=== PATIENT | male | born 1945 | race Caucasian/White ===

== ENCOUNTER 2017-09-06 07:57 | Day surgery (SDC) | payer MEDICARE ==
[~2017-09-06 07:57] MED LIST: CHONDR SU A NA/HYALUR INTRAOC KIT (SURGICARE) ONE; EPINEPHRINE INJ/PF 1 MG/1 ML AMPULE ONE; KETOROLAC TROMETHAMINE 0.45% 4 DROP/0.4 ML DROPERETTE OD PRN; LIDOCAINE 1% INJ-PF (10 MG/ML) 30 ML SDV ONE
[2017-09-06] MEDS: TROPICAMIDE 1% OPH SOLN 3 ML OD PRN ×3 (08:16→08:35)
[2017-09-06] MEDS: TETRACAINE HCL 0.5% OPH SOLN 2 ML OD PRN ×3 (08:16→08:43)
[2017-09-06] MEDS: CYCLOPENTOLATE 0.2%/PHENYLEPHRINE 1% OPH SOLN 2 ML OD PRN ×3 (08:16→08:35)
[2017-09-06] MEDS: BESIFLOXACIN HCL 0.6% OPH SUSP 5 ML BOTTLE OD PRN ×4 (08:17→09:04)
[2017-09-06] MEDS ORDERED: FENTANYL CITRATE INJ/PF 100 MCG/2 ML AMPUL ONE (08:30)
[2017-09-06] MEDS ORDERED: MIDAZOLAM 2 MG/2 ML INJ ONE (08:30)
--- NOTE | 2017-09-07 08:17 | [facility] OPERATIVE REPORT E ---
[facility] Operative Report NAME: ELIZABETH MERRILL AGE: 72Y DATE OF SURGERY: 09/06/2017 ROOM: PREOPERATIVE DIAGNOSIS: CATARACT, RIGHT EYE. POSTOPERATIVE DIAGNOSIS: CATARACT, RIGHT EYE. OPERATION: Cataract extraction with intraocular lens implant of the right eye. SURGEON: RALEIGH WYATT M.D. ANESTHESIA: Topical. PROCEDURE: After obtaining appropriate consent, the patient's right eye was prepped and draped in sterile fashion as well as the surgeon in a sterile manner and cataract surgery was started. First a paracentesis blade was used to make a small side-port incision. Viscoelastic was used to inflate the anterior chamber. Next a 2.4 mm incision was made with the paracentesis blade. A continuous capsulorrhexis incision was made using a cystotome and Utrata forceps. Following this hydrodissection was carried out to make the lens fully loose and mobile and it was rotated 90 degrees. Following this, a azbnul-esn-hatqkcj technique was used to phacoemulsify the lens with a CDE of 11.93. The remaining cortex was removed with irrigation/aspiration. Provisc was instilled into the capsular bag to inflate the bag. A SN60WF, 18.5 diopter lens was placed. The remaining viscoelastic material was removed with irrigation/aspiration. Following this, a 10-0 nylon suture was used to close the incision and it was found to be watertight. Vigamox was instilled in the eye and a protective shield was placed over the eye. The patient returned to the postoperative recovery in stable condition. DICTATING PHYSICIAN: RALEIGH WYATT M.D. [id number] PHY#: [id number] ID: [id number] JOB#: [id number] ACCT: [id number] cc:RALEIGH WYATT M.D. >
--- NOTE | 2017-09-07 08:23 | [facility] DISCHARGE SUMMARY E ---
[facility] Discharge Summary NAME: ELIZABETH MERRILL AGE: 72Y ADMITTED: 09/06/2017 DISCHARGED: 09/06/2017 HISTORY: This is a 72-year-old patient who underwent cataract extraction of the right eye. DIAGNOSIS: Cataract of the right eye. HOSPITAL COURSE: The patient underwent surgery because she was having difficulty driving at night secondary to glare of headlights. He should be on a regular diet. No bending at his waist. No heavy lifting. He should use his Besivance, Ilevro, and Durezol at 3 p.m. and 8 p.m. and sleep with a rigid shield, and I will see him for one day postoperative tomorrow. DICTATING PHYSICIAN: RALEIGH WYATT M.D. [id number] PHY#: [id number] ID: [id number] JOB#: [id number] ACCT: [id number] cc:RALEIGH WYATT M.D. >
== END 2017-09-06 09:45 | disposition home or self-care (01) ==
LOC: SC 07:57
PROVIDERS: ATTEND Internal Medicine
PROC: 08RJ3JZ Replacement of Right Lens with Synthetic Substitute, Percutaneous Approach (ICD-10-PCS; principal; 2017-09-06 09:00)
DX: H25.13 Age-related nuclear cataract, bilateral (principal); I12.9 Hypertensive chronic kidney disease with stage 1 through stage 4 chronic kidney disease, or unspecified chronic kidney disease; N18.3 Chronic kidney disease, stage 3 (moderate); N40.0 Benign prostatic hyperplasia without lower urinary tract symptoms; Z87.891 Personal history of nicotine dependence; Z79.899 Other long term (current) drug therapy; Z85.51 Personal history of malignant neoplasm of bladder
CPT/HCPCS: 66984; V2632; J2250; J3490 ×2; A9270; J0171; J3010; 142

== ENCOUNTER 2017-09-20 06:50 | Day surgery (SDC) | payer MEDICARE ==
[~2017-09-20 06:50] MED LIST changes: -CHONDR SU A NA/HYALUR INTRAOC KIT (SURGICARE) ONE; -EPINEPHRINE INJ/PF 1 MG/1 ML AMPULE ONE; -KETOROLAC TROMETHAMINE 0.45% 4 DROP/0.4 ML DROPERETTE OD PRN; +KETOROLAC TROMETHAMINE 0.45% 4 DROP/0.4 ML DROPERETTE OS PRN; -LIDOCAINE 1% INJ-PF (10 MG/ML) 30 ML SDV ONE
[2017-09-20] MEDS ORDERED: MIDAZOLAM 2 MG/2 ML INJ ONE (06:52)
[2017-09-20] MEDS ORDERED: FENTANYL CITRATE INJ/PF 100 MCG/2 ML AMPUL ONE (06:52)
[2017-09-20] MEDS ORDERED: EPINEPHRINE INJ/PF 1 MG/1 ML AMPULE ONE (07:08)
[2017-09-20] MEDS ORDERED: CHONDR SU A NA/HYALUR INTRAOC KIT (SURGICARE) ONE (07:08)
[2017-09-20] MEDS ORDERED: LIDOCAINE 1% INJ-PF (10 MG/ML) 30 ML SDV ONE (07:08)
[2017-09-20] MEDS: CYCLOPENTOLATE 0.2%/PHENYLEPHRINE 1% OPH SOLN 2 ML OS PRN ×3 (07:13→07:33)
[2017-09-20] MEDS: TETRACAINE HCL 0.5% OPH SOLN 2 ML OS PRN ×3 (07:13→07:59)
[2017-09-20] MEDS: BESIFLOXACIN HCL 0.6% OPH SUSP 5 ML BOTTLE OS PRN ×4 (07:13→08:23)
[2017-09-20] MEDS: TROPICAMIDE 1% OPH SOLN 3 ML OS PRN ×3 (07:13→07:33)
--- NOTE | 2017-09-21 08:32 | [facility] OPERATIVE REPORT E ---
[facility] Operative Report NAME: ELIZABETH MERRILL AGE: 72Y DATE OF SURGERY: 09/21/2017 ROOM: PREOPERATIVE DIAGNOSIS: Cataract, left eye. POSTOPERATIVE DIAGNOSIS: Cataract, left eye. OPERATION: Cataract extraction with intraocular lens implant of the left eye. SURGEON: RALEIGH WYATT M.D. ANESTHESIA: Topical. PROCEDURE: After obtaining appropriate consent, the patient's left eye was prepped and draped in sterile fashion as well as the surgeon in a sterile manner and cataract surgery was started. First a paracentesis blade was used to make a small side-port incision. Viscoelastic was used to inflate the anterior chamber. Next a 2.4 mm incision was made with the paracentesis blade. A continuous capsulorrhexis incision was made using a cystotome and Utrata forceps. Following this hydrodissection was carried out to make the lens fully loose and mobile and it was rotated 90 degrees. Following this, a cnuvpo-irz-nzquhih technique was used to phacoemulsify the lens with a CDE of 10.20. The remaining cortex was removed with irrigation/aspiration. Provisc was instilled into the capsular bag to inflate the bag. A SN60WF, 21.0 diopter lens was placed. The remaining viscoelastic material was removed with irrigation/aspiration. Following this, a 10-0 nylon suture was used to close the incision and it was found to be watertight. Vigamox was instilled in the eye and a protective shield was placed over the eye. The patient returned to the postoperative recovery in stable condition. DICTATING PHYSICIAN: RALEIGH WYATT M.D. [id number] PHY#: [id number] ID: [id number] JOB#: [id number] ACCT: [id number] cc:RALEIGH WYATT M.D. >
--- NOTE | 2017-09-21 08:33 | [facility] DISCHARGE SUMMARY E ---
[facility] Discharge Summary NAME: ELIZABETH MERRILL AGE: 72Y ADMITTED: 09/20/2017 DISCHARGED: 09/20/2017 HISTORY OF PRESENT ILLNESS AND HOSPITAL COURSE: This is a 72-year-old male who underwent cataract extraction of the left eye. DIAGNOSIS: Cataract, left eye. HOSPITAL COURSE: He underwent surgery because he was having difficulty with driving because of glare from headlights. DISCHARGE INSTRUCTIONS: 1. He should be on a regular diet. 2. No bending at his waist and no heavy lifting. 3. He should use his Besivance, Ilevro, and Durezol at 3 p.m. and 8 p.m. and sleep with a rigid shield. 4. I will see him for his one-day postoperative tomorrow. DICTATING PHYSICIAN: RALEIGH WYATT M.D. [id number] PHY#: [id number] ID: [id number] JOB#: [id number] ACCT: [id number] cc:RALEIGH WYATT M.D. >
== END 2017-09-20 09:00 | disposition home or self-care (01) ==
LOC: SC 06:50
PROVIDERS: ATTEND Internal Medicine
PROC: 08RK3JZ Replacement of Left Lens with Synthetic Substitute, Percutaneous Approach (ICD-10-PCS; principal; 2017-09-20 08:00)
DX: H25.12 Age-related nuclear cataract, left eye (principal); Z96.1 Presence of intraocular lens; K21.9 Gastro-esophageal reflux disease without esophagitis; I12.9 Hypertensive chronic kidney disease with stage 1 through stage 4 chronic kidney disease, or unspecified chronic kidney disease; N18.3 Chronic kidney disease, stage 3 (moderate); Z79.899 Other long term (current) drug therapy; Z87.891 Personal history of nicotine dependence; Z85.51 Personal history of malignant neoplasm of bladder
CPT/HCPCS: 66984; V2632; J2250; J3490 ×2; A9270; J0171; J3010; 142

== ENCOUNTER 2020-12-07 00:56 | Emergency (ER) | payer MEDICARE, OTHER ==
[2020-12-07 01:45] LABS: ABSOLUTE EOSINOPHILS # (AUTO) 0.1 10^3/uL (0.0-0.6); ABSOLUTE LYMPHOCYTES (AUTO) 1.4 10^3/uL (0.5-4.7); ABSOLUTE MONOCYTES (AUTO) 0.8 10^3/uL (0.1-1.4); ABSOLUTE NEUT (AUTO) 4.3 10^3/uL (1.7-8.2); BASOPHILS % (AUTO) 0.4 % (0-2); EOSINOPHILS % (AUTO) 0.9 % (0-6); HEMATOCRIT 43.9 % (37.9-51.0); HEMOGLOBIN 14.5 g/dL (13.5-17.0); LYMPHOCYTES % (AUTO) 20.6 % (13-45); MEAN CORPUSCULAR HEMOGLOBIN 27.2 pg (27.0-33.4); MEAN CORPUSCULAR HGB CONC 33.1 g/dL (32.0-36.0); MEAN CORPUSCULAR VOLUME 82 fl (80-97); MONOCYTES % (AUTO) 12.3 % (3-13); PLATELET COUNT 164 10^3/uL (150-450); RED BLOOD COUNT 5.34 10^6/uL (4.35-5.55); RED CELL DISTRIBUTION WIDTH 15.1 % (11.5-14.0); SEGMENTED NEUTROPHILS % (AUTO) 65.8 % (42-78); TOTAL CELLS COUNTED % (AUTO) 100 %; WHITE BLOOD COUNT 6.6 10^3/uL (4.0-10.5)
[2020-12-07 01:49] LABS: ALBUMIN 3.8 g/dL (3.5-5.0); ALKALINE PHOSPHATASE 100 U/L (38-126); ANION GAP 8 (5-19); ASPARTATE AMINO TRANSFERASE 18 U/L (17-59); BILIRUBIN,DIRECT 0.3 mg/dL (0.0-0.4); BILIRUBIN,TOTAL 0.9 mg/dL (0.2-1.3); BLOOD UREA NITROGEN 19 mg/dL (7-20); CALCIUM 8.9 mg/dL (8.4-10.2); CARBON DIOXIDE 27 mmol/L (22-30); CHLORIDE 106 mmol/L (98-107); CREATINE KINASE 56 U/L (55-170); GLUCOSE 178 mg/dL (75-110); POTASSIUM 3.7 mmol/L (3.6-5.0); TOTAL PROTEIN 6.7 g/dL (6.3-8.2)
--- NOTE | 2020-12-07 02:04 | RADIOLOGY REPORT (SQ) ---
CHEST X-RAY 1 VIEW on 12/07/2020 at 1:33 AM CLINICAL INDICATION: Cough COMPARISON: 08/31/2014 FINDINGS: There is mild developing patchy left lower lung opacity consistent with atelectasis or early pneumonia, differential diagnosis would include viral infections. There is minimal left apical scarring. The lungs are otherwise clear. Cardiac, hilar and mediastinal contours are within normal limits. Pulmonary vascularity is within normal limits. IMPRESSION: Mild left lower lung atelectasis or early pneumonia, differential diagnosis would include viral infections.
[2020-12-07 02:18] LABS: CREATINE KINASE MB < 0.22 ng/mL (<4.55); TROPONIN I < 0.012 ng/mL
[2020-12-07] MEDS ORDERED: ACETAMINOPHEN 325 MG TABLET PO ONE (03:10)
[2020-12-07] MEDS ORDERED: ENOXAPARIN SODIUM INJ 100 MG/1 ML DISP.SYRIN SUBCUT STA (03:58)
[2020-12-07 04:11] LABS: INTERNATIONAL RATION (INR) 0.99; PARTIAL THROMBOPLASTIN TIME 29.5 SEC (23.5-35.8); PROTHROMBIN TIME 13.3 SEC (11.4-15.4)
--- NOTE | 2020-12-07 07:42 | ER Document Report ---
ED General <KAMILAH BENITO - Last Filed: 12/07/20 15:53> - General TRAVEL OUTSIDE OF THE [place] IN LAST 30 DAYS: No <CARLOS HARRIS - Last Filed: 12/09/20 07:20> - General Chief Complaint: Chest Wall Pain Stated Complaint: CHEST PAIN X5DAYS Primary Care Provider: NELLI HERNADEZ MD [Primary Care Provider] - Follow up as needed Notes: I spoke with this patient at 0 900 after returning from VQ scan where Shelli atm technician and Dr. Bro radiologist read this as a lower lobe pulmonary embolism. Patient is tachypneic at 29 and has severe pain. He reports 3 weeks ago he Covid and was tested negative per EMS in route. He has no prior history of DVT or pulmonary embolism. I spoke to Dr. Sethi hospitalist about this case shortly after this. I spoke about this at 0 915 and he advises Lovenox oral Eliquis pain medication and antibiotics. (KAMILAH BENITO JR) 75-year-old male with history of hypertension and psoriasis on Humira, CKD presents with approximately 5 days of chest pain lateral anterior lower left chest exacerbated by taking deep breaths. Patient has had dry cough for the past 3 weeks, has Covid currently with patient presumptive positive, over the past few days developed chest pain and has had scant red hemoptysis. Patient denies exertional chest pain, cardiac history, lower extremity edema, prior DVT/PE/hypercoagulability history, recent travel/trauma/immobilization/surgery, abdominal pain, back pain, fever, shortness of breath (CARLOS HARRIS) - Related Data Allergies/Adverse Reactions: No Known Allergies Allergy (Verified 09/06/17 08:10) Past Medical History - Social History Smoking Status: Never Smoker Cigarette use (# per day): No Chew tobacco use (# tins/day): No Smoking Education Provided: No Frequency of alcohol use: None Lives with: Family Family History: Reviewed & Not Pertinent Patient has suicidal ideation: No Patient has homicidal ideation: No <YINGKAMILAH Ponce - Last Filed: 12/07/20 15:53> - General Information source: Patient - Social History Smoking Status: Never Smoker Chew tobacco use (# tins/day): No Frequency of alcohol use: None Drug Abuse: None Family History: Reviewed & Not Pertinent Patient has homicidal ideation: No - Past Medical History Cardiac Medical History: Reports: Hx Hypertension - MEDICATION,NEW MEDS Denies: Hx Heart Attack Pulmonary Medical History: Denies: Hx Asthma Neurological Medical History: Denies: Hx Cerebrovascular Accident, Hx Seizures GI Medical History: Denies: Hx Hepatitis, Hx Hiatal Hernia, Hx Ulcer Infectious Medical History: Denies: Hx Hepatitis Past Surgical History: Reports: Hx Genitourinary Surgery - bladder. Denies: Hx Open Heart Surgery, Hx Pacemaker - Immunizations Hx Diphtheria, Pertussis, Tetanus Vaccination: Yes <CARLOS HARRIS - Last Filed: 12/09/20 07:20> Review of Systems - Review of Systems Constitutional: Recent illness - covid uri EENT: No symptoms reported Cardiovascular: No symptoms reported Respiratory: See HPI, Cough, Hurts to breathe, Short of breath. denies: Sputum, Stridor, Wheezing Gastrointestinal: No symptoms reported Genitourinary: No symptoms reported Male Genitourinary: No symptoms reported Musculoskeletal: No symptoms reported Skin: No symptoms reported Hematologic/Lymphatic: No symptoms reported Neurological/Psychological: No symptoms reported -: Yes All other systems reviewed and negative <KAMILAH BENITO JR - Last Filed: 12/07/20 15:53> <CARLOS HARRIS - Last Filed: 12/09/20 07:20> - Review of Systems Notes: REVIEW OF SYSTEMS: CONSTITUTIONAL : Denies fever, chills, or sweats. EENT: + recent cold symptoms, denies throat pain CARDIOVASCULAR: + chest pain, -ONUR RESPIRATORY: + cough, denies shortness of breath. GASTROINTESTINAL: Denies abdominal pain, nausea/vomiting. GENITOURINARY: Denies difficulty urinating, painful urination. MUSCULOSKELETAL: Denies neck pain, back pain. SKIN: Denies rash or skin lesions. HEMATOLOGIC : Denies easy bruising or bleeding. LYMPHATIC: Denies swollen, enlarged glands. NEUROLOGICAL: Denies headache, denies change in gait. PSYCHIATRIC: Denies anxiety or stress or depression. (CARLOS HARRIS) Physical Exam - Vital signs Interpretation: Tachypneic - General General appearance: Appears well, Alert - HEENT Head: Normocephalic, Atraumatic Eyes: Normal Pupils: PERRL - Respiratory Respiratory status: No respiratory distress Chest status: Tender - Left lower chest tenderness on palpation and inspiration. Breath sounds: Normal Chest palpation: Normal - Cardiovascular Rhythm: Regular Heart sounds: Normal auscultation Murmur: No - Abdominal Inspection: Normal Distension: No distension Bowel sounds: Normal Tenderness: Nontender Organomegaly: No organomegaly - Rectal Prostate: Other - Deferred - Genitourinary Scrotum: Other - Deferred - Back Back: Normal, Nontender - Extremities General upper extremity: Normal inspection, Nontender, Normal color, Normal ROM, Normal temperature General lower extremity: Normal inspection, Nontender, Normal color, Normal ROM, Normal temperature, Normal weight bearing. No: Tyler's sign - Neurological Neuro grossly intact: Yes Cognition: Normal Orientation: AAOx4 [place] Coma Scale Eye Opening: Spontaneous [place] Coma Scale Verbal: Oriented [place] Coma Scale Motor: Obeys Commands Kayy Coma Scale Total: 15 Speech: Normal Motor strength normal: LUE, RUE, LLE, RLE Sensory: Normal - Psychological Associated symptoms: Normal affect, Normal mood - Skin Skin Temperature: Warm Skin Moisture: Dry Skin Color: Normal <YINGKAMILAH JR - Last Filed: 12/07/20 15:53> <CARLOS HARRIS - Last Filed: 12/09/20 07:20> - Vital signs Vitals: Resp Pulse Ox 24 H 93 12/07/20 01:02 12/07/20 01:02 - Notes Notes: PHYSICAL EXAMINATION: GENERAL: Well-appearing, well-nourished and in no acute distress. HEAD: Atraumatic, normocephalic. EYES: Pupils equal round and appropriate constriction, sclera anicteric, conjunctiva are normal. ENT: nares patent, moist mucous membranes. NECK: Normal range of motion, supple without lymphadenopathy LUNGS: Breath sounds clear to auscultation bilaterally and equal. No wheezes rales or rhonchi. Mild tachypnea, no accessory muscle use, speaking in full sentences, managing secretions, no supplemental O2 HEART/CHEST: Regular rate and rhythm without murmurs, no chest tenderness ABDOMEN: Soft, nontender, no guarding, no masses, no CVAT EXTREMITIES: Normal range of motion, no pitting or edema. No cyanosis. NEUROLOGICAL: Awake, alert, conversing appropriately, moves all extremities spontaneously. PSYCH: Normal mood, normal affect. SKIN: Warm, Dry, normal turgor, no rashes or lesions noted. (CARLOS HARRIS) Course - Laboratory Results Result Diagrams: 12/07/20 01:04 12/07/20 01:04 Critical Laboratory Results Reviewed: Yes Attending or Supervising Physician who Reviewed Labs: KAMILAH BENITO JR - Radiology Results Critical Radiology Results Reviewed: Yes Attending or Supervising Physician who Reviewed Radiology: KAMILAH BENITO JR - EKG Interpretation by EKG shows normal: Sinus rhythm Rate: Normal Rhythm: NSR <KAMILAH BENITO JR - Last Filed: 12/07/20 15:53> - Laboratory Results Result Diagrams: 12/07/20 01:04 12/07/20 01:04 <CARLOS HARRIS - Last Filed: 12/09/20 07:20> - Re-evaluation Re-evalutation: 12/07/20 07:40 Patient with presumptive Covid positive presents with 5 days pleuritic chest pain, rule out superimposed bacterial pneumonia, rule out PE, less likely ACS. EKG, troponin, D-dimer, chest x-ray. Patient's D-dimer was positive so ordered empiric dose of Lovenox and VQ scan as patient's creatinine too high to perform CTA chest. Patient's exam has been stable in ED so far, have turned patient over to Dr. Benito pending VQ scan. Possible infiltrate on chest x-ray but this may be secondary to PE given no fever and no leukocytosis, will give antibiotics if no PE on V/Q. (CARLOS HARRIS) - Vital Signs Vital signs: Temp Pulse Resp BP Pulse Ox 12 130/86 H 97 12/07/20 11:01 12/07/20 11:01 12/07/20 11:01 - Laboratory Results Laboratory Results Interpreted: 12/07/20 12/07/20 12/07/20 01:04 01:04 01:04 RDW 15.1 H D-Dimer 3.28 H Creatinine 1.62 H Est GFR ( Amer) 51 L Est GFR (MDRD) Non-Af 42 L Glucose 178 H - Radiology Results Radiology Results Interpreted: 12/07/20 15:54 PE RLL per radiology dr goodman 12/07/20 15:55 (KAMILAH BENITO JR) - EKG Interpretation by Me Additional EKG results interpreted by me: 12/07/20 07:42 Sinus tachycardia, no significant ST elevations or depressions, no significant T wave abnormalities (CARLOS HARRIS) Discharge <YINGKAMILAH Kris BOSCH - Last Filed: 12/07/20 15:53> <CARLOS HARRIS - Last Filed: 12/09/20 07:20> - Discharge Clinical Impression: Pulmonary embolism and infarction, Pulmonary embolism associated with COVID-19, Chest pain at rest Condition: Stable Disposition: HOME, SELF-CARE Additional Instructions: Follow-up with personal doctor this week return to ER as needed take medicines as directed encourage fluids; you have a pulmonary embolism that was probably initiated by Covid. Take antibiotics as well. If more shortness of breath and chest pain recur despite pain medicines will have to return to ER. Prescriptions: Hydrocodone Bit/Homatropine [Hycodan Syrup 5-1.5 mg/5 ml Ud Cup] 5 ml PO Q4HP PRN #120 ml PRN Reason: Apixaban [Eliquis 5 mg Tablet] 5 mg PO BID 30 Days #60 tablet Azithromycin [Zithromax 250 mg Tablet] 250 mg PO ASDIR PRN #6 tablet PRN Reason: Referrals: NELLI HERNADEZ MD [Primary Care Provider] - Follow up as needed
--- NOTE | 2020-12-07 09:16 | RADIOLOGY REPORT (SQ) ---
EXAM DESCRIPTION: NM LUNG PERFUSION SCAN IMAGES COMPLETED DATE/TIME: 12/07/2020 8:55 am REASON FOR STUDY: pleuritic left CP positive d-dimer COMPARISON: 12/07/2020 RADIONUCLIDE AND DOSE: 5.26 millicuries TC-99m MAA The route of agent administration: Intravenous TECHNIQUE: Eight views of the lungs acquired following injection of MAA. LIMITATIONS: None. FINDINGS: PERFUSION: Perfusion imaging reveals a large wedge-shaped perfusion defect involving the r ight lower lobe. OTHER: No other significant finding. IMPRESSION: High probability for pulmonary embolus of the right lower lobe. TECHNICAL DOCUMENTATION: JOB ID: [id number] 2010 [employer]- All Rights Reserved Reading location - IP/workstation name: [email or web address]
[2020-12-07] MEDS ORDERED: APIXABAN 5 MG TABLET PO ONE (09:18)
[2020-12-07] MEDS ORDERED: KETOROLAC TROMETHAMINE INJ/PF 30 MG/1 ML SDV IV ONE (09:23)
[2020-12-07] MEDS ORDERED: HYDROCODONE/ACETAMINOPHEN 5-325 MG TABLET PO ONE (09:23)
--- NOTE | 2020-12-07 09:51 | EKG REPORT ---
SEVERITY:- ABNORMAL ECG - SINUS TACHYCARDIA BORDERLINE T WAVE ABNORMALITIES : Confirmed by: Galina Claire MD 07-Dec-2020 09:50:51
[2020-12-07] MEDS ORDERED: HYDROCODONE BIT/HOMATROPINE 5-1.5 MG TABLET PO ONE (10:26)
[2020-12-07] MEDS ORDERED: BENZONATATE 100 MG CAPSULE PO ONE (10:26)
[2020-12-07] MEDS ORDERED: HYDROCODONE/ACETAMINOPHEN 5-325 MG (6 TAB/ER DISP) PO PRN (11:08)
[2020-12-07 11:50] VITALS: BP 130/86
== END 2020-12-07 11:51 | disposition home or self-care (01) ==
LOC: ER 00:56
DX: U07.1 COVID-19 (principal); I26.99 Other pulmonary embolism without acute cor pulmonale; R07.89 Other chest pain; I12.9 Hypertensive chronic kidney disease with stage 1 through stage 4 chronic kidney disease, or unspecified chronic kidney disease; N18.9 Chronic kidney disease, unspecified
CPT/HCPCS: 93005; 99285; 96372; 96374; 36415; 82553; 82550; 85025; 85610; 85730; 80053; 84484; 85379; 71045; 78580; 93010; A9540; A9270 ×5; J1885; J1650; Q9969